=== PATIENT | female | born 1955 | race Caucasian/White ===

== ENCOUNTER 2020-10-28 08:33 | Emergency (ER) | payer MEDICAID ==
[~2020-10-28] VITALS: Ht 172.7 cm; Wt 59.7 kg
[~2020-10-28 08:33] MED LIST: ASPI81TA30 PO; CLON0.1T PO; CYCL-394 PO; DEXL60CA3 PO; DICY10CA88 PO; DULO20CA50 PO; MECL25TA3 PO; NORCO10T PO; PAM25C PO; PROM25TA14 PO
[2020-10-28 08:47] VITALS: BP 123/77
[2020-10-28] MEDS ORDERED: VALA100031 PO (10:16)
[2020-10-28] MEDS ORDERED: HYDR-3965 PO (10:16)
== END 2020-10-28 11:33 | disposition home or self-care (01) ==
LOC: ER 08:33
DX: M25.561 Pain in right knee (principal); B02.9 Zoster without complications; K21.9 Gastro-esophageal reflux disease without esophagitis; M19.90 Unspecified osteoarthritis, unspecified site; G89.29 Other chronic pain; Z98.890 Other specified postprocedural states; Z88.5 Allergy status to narcotic agent; Z79.82 Long term (current) use of aspirin; Z79.899 Other long term (current) drug therapy
CPT/HCPCS: 29505; 73564; 99284

== ENCOUNTER 2021-08-03 10:34 | Emergency (ER) | payer MEDICARE, MEDICAID ==
[~2021-08-03] VITALS: Ht 172.7 cm; Wt 61.2 kg
[~2021-08-03 10:34] MED LIST changes: +VALA100031 PO
[2021-08-03 10:43] VITALS: BP 103/57
[2021-08-03] MEDS ORDERED: CYCL-1 PO (11:45)
[2021-08-03] MEDS ORDERED: ketorolac trometh inj. 60 MG/2 ML VIAL IM ONE (11:45)
== END 2021-08-03 12:26 | disposition home or self-care (01) ==
LOC: ER 10:34
DX: S39.012A Strain of muscle, fascia and tendon of lower back, initial encounter (principal); G89.29 Other chronic pain; M62.830 Muscle spasm of back; K21.9 Gastro-esophageal reflux disease without esophagitis; M19.90 Unspecified osteoarthritis, unspecified site; Z98.890 Other specified postprocedural states; Z88.8 Allergy status to other drugs, medicaments and biological substances; Z88.5 Allergy status to narcotic agent; Z79.82 Long term (current) use of aspirin; Z79.899 Other long term (current) drug therapy; W19.XXXA Unspecified fall, initial encounter; Y93.89 Activity, other specified; Y92.89 Other specified places as the place of occurrence of the external cause; Y99.8 Other external cause status
CPT/HCPCS: 96372; 99284; J1885